=== PATIENT | female | born 1990 | race African-American/Black ===

== ENCOUNTER → 2024-12-05 | Day surgery (SDC) | payer OTHER ==
[2024-12-02 10:13] VITALS: BMI 35.8
[~2024-12-05] MED LIST: ACETAMINOPHEN 500 MG TABLET (FP) ONE; BENZOIN/ALOE VERA/STORAX/TOLU 58 ML BOTTLE ONE; SODIUM CHLORIDE 0.9% P/F 10 ML VIAL IJ ONE
[2024-12-05] MEDS: ACETAMINOPHEN 500 MG TABLET (FP) PO PRN (15:52)
[2024-12-05 15:56] VITALS: RESP 18; TEMP 98
[2024-12-05 16:16] VITALS: BP 114/77; PULSE 84
== END | disposition home or self-care (01) ==
LOC: JASU-SURG 07:04
PROVIDERS: ATTEND Pain Medicine Pain Medicine
PROC: 3E0R33Z Introduction of Anti-inflammatory into Spinal Canal, Percutaneous Approach (ICD-10-PCS; principal; 2024-12-05 15:09)
DX: M54.12 Radiculopathy, cervical region (principal)
CPT/HCPCS: 76000-TC-FY; 81025